=== PATIENT | male | born 1995 | race Caucasian/White ===

== ENCOUNTER 2024-04-08 21:59 | Emergency (ER) | payer MEDICAID, OTHER ==
[~2024-04-08] VITALS: Ht 175.3 cm; Wt 75.0 kg
[2024-04-08 22:02] VITALS: O2SAT 98
[2024-04-08] MEDS: SODIUM CHLORIDE 0.9% 1,000 ML IV ONE (22:30)
[2024-04-08 22:43] LABS: BASOPHILS % 0.7 % (0.0-2.0); EOSINOPHILS % 0.4 % (0.0-5.0); HEMATOCRIT. 45.2 % (42.0-52.0); HEMOGLOBIN. 15.3 g/dL (14.0-18.0); LYMPHOCYTES % 22.2 % (20.0-50.0); MEAN CORPUSCULAR HEMOGLOBIN 32.6 pg (28.0-32.0); MEAN CORPUSCULAR HGB CONC 33.8 g/dL (31.0-37.0); MEAN CORPUSCULAR VOLUME 96.4 fL (80.0-94.0); MEAN PLATELET VOLUME 7.8 fl (7.4-10.4); MONOCYTES % 5.8 % (2.0-8.0); NEUTROPHILS % 70.9 % (40.0-76.0); PLATELET 295 x1000/uL (130-400); RED BLOOD CELL COUNT 4.69 mill/uL (4.7-6.1); WHITE BLOOD COUNT 6.8 x1000/uL (4.5-11.0)
[2024-04-08 22:48] LABS: CHLORIDE 104 mEq/L (98-107); SODIUM 136 mEq/L (136-145)
[2024-04-08 22:49] LABS: CALCIUM 9.6 mg/dL (8.7-10.4); CARBON DIOXIDE 26 mEq/L (21-32)
[2024-04-08 22:54] LABS: CREATININE 0.7 mg/dL (0.6-1.3); GLUCOSE 109 mg/dL (70-105); UREA NITROGEN BLOOD 10 mg/dL (9-23)
[2024-04-08 22:56] LABS: ACETAMINOPHEN < 2 ug/mL (10-30); ETHANOL BLOOD < 10 mg/dL (<10)
[2024-04-08] MEDS: ONDANSETRON HCL 4MG/2ML INJ IV ONE (23:36)
[2024-04-09 03:15] VITALS: BP 130/58; PULSE 55; RESP 13; TEMP 98.4
== END 2024-04-09 03:20 | disposition home or self-care (01) ==
LOC: ER 21:59
DX: R56.9 Unspecified convulsions (principal); F19.10 Other psychoactive substance abuse, uncomplicated; F12.10 Cannabis abuse, uncomplicated; F17.210 Nicotine dependence, cigarettes, uncomplicated
CPT/HCPCS: 80048; 80307; 80329; 80320; 85025; 36415; 70450; 96361; 96374; 99285; J2405; J7030; G0480